=== PATIENT | female | born 1990 | race Caucasian/White ===

== ENCOUNTER 2018-07-23 15:19 | Emergency (ER) | payer OTHER ==
[~2018-07-23 15:19] MED LIST: ADDERALL; ALBU90OI INH; AMOCLA500 PO; AMOX500 PO; ATOM40; AZIT250 PO; BCPs; BENZ100A PO; Bactrim Ds Tab1 EACH PO; CEPH500 PO; CIPR500 PO; CODGUAEL PO; CRUTCH3 USE; CYCL10 PO; Cleocin HCl300 MG PO; FLUO20; HYDACE5 PO; HYDACE5325 PO; IBUP400 PO; IBUP600 PO; IBUP800 PO; Loperamide2 MG PO; MELA3; NAPR500 PO; NO ROUTINE MEDS; OXYACE5T PO; PERM5TC TOP; PHENA200 PO; PRED10 PO; PROC10 PO; PROCODE120 PO; PROM25 PO; RXOXYACE PO; Roxicodone5 MG PO; SERT25; SULTRIDS PO; TOBDEXOPO OP; TOBR.3OPSO OP; TRAM50 PO; TRIA80TC TOP; Ultram50 MG PO; Zithromax250 MG PO
== END 2018-07-23 15:57 | disposition left against medical advice (07) ==
LOC: ER 15:19
DX: Z53.21 Procedure and treatment not carried out due to patient leaving prior to being seen by health care provider (principal); O26.859 Spotting complicating pregnancy, unspecified trimester

== ENCOUNTER 2018-07-26 05:12 | Emergency (ER) | payer OTHER ==
[~2018-07-26] VITALS: Ht 160 cm; Wt 79.4 kg
[2018-07-26 06:44] LABS: BASOPHILS ABSOLUTE AUTO 0.02 K/mm3 (0.00-0.23); BASOPHILS PERCENT AUTO 0 % (0-2); EOSINOPHILS ABSOLUTE AUTO 0.09 K/mm3 (0.00-0.68); EOSINOPHILS PERCENT AUTO 1 % (0-6); Hematocrit 35.8 % (33.0-51.0); Hemoglobin 11.8 g/dL (11.5-16.0); IMMATURE GRAN ABSOLUTE AUTO 0.01 K/mm3 (0.00-0.10); IMMATURE GRAN PERCENT AUTO 0 % (0-1); LYMPHOCYTES ABSOLUTE AUTO 1.91 K/mm3 (0.84-5.20); LYMPHOCYTES PERCENT AUTO 24 % (21-46); MONOCYTES ABSOLUTE AUTO 0.68 K/mm3 (0.16-1.47); MONOCYTES PERCENT AUTO 9 % (4-13); Mean Corpuscular HGB 29.6 pg (26.0-34.0); Mean Corpuscular Volume 90 fL (80-100); Mean Platelet Volume 9.4 fL (9.1-12.4); NEUTROPHILS ABSOLUTE AUTO 5.15 K/mm3 (1.96-9.15); NEUTROPHILS PERCENT AUTO 66 % (41-73); Platelet Count 335 K/mm3 (150-400); RDW Coefficient Variation 12.5 % (11.7-14.2); RDW Standard Deviation 41.2 fL (35.1-46.3); Red Blood Cell Count 3.99 M/mm3 (3.80-5.20); White Blood Cell Count 7.86 K/mm3 (4.00-11.30)
[2018-07-26 07:09] LABS: Anion Gap 8 mmol/L (6-16); Beta HCG, Quantitative, Serum 967 mIU/mL (0-3); Blood Urea Nitrogen 20 mg/dL (8-24); Bun/Creatinine Ratio 25.4 (12.0-20.0); CO2, Blood 26 mmol/L (21-32); Calcium, Blood 8.1 mg/dL (8.5-10.1); Chloride, Blood 108 mmol/L (98-108); Creatinine, Blood 0.79 mg/dL (0.40-1.00); Glomerular Filtration Rate >60 (60-); Glucose, Blood 80 mg/dL (70-99); Potassium, Blood 3.4 mmol/L (3.5-5.5); Sodium, Blood 142 mmol/L (136-145)
== END 2018-07-26 08:36 | disposition home or self-care (01) ==
LOC: ER 05:12
PROVIDERS: Emergency Medicine
DX: O03.9 Complete or unspecified spontaneous abortion without complication (principal); Z88.5 Allergy status to narcotic agent; Z88.7 Allergy status to serum and vaccine; Z79.899 Other long term (current) drug therapy; F17.210 Nicotine dependence, cigarettes, uncomplicated
CPT/HCPCS: 76801; 80048; 84702; 84703; 85025; 86900; 86901; 99284-25

== ENCOUNTER 2020-02-28 21:27 | Emergency (ER) | payer SELFPAY ==
[~2020-02-28] VITALS: Ht 160 cm; Wt 77.1 kg
[2020-02-29] MEDS ORDERED: Keflex500 MG PO (18:50)
[2020-02-29] MEDS ORDERED: Bactrim Ds Tab1 EACH PO (18:50)
== END 2020-02-29 01:08 | disposition left against medical advice (07) ==
LOC: ER 21:27
DX: R21 Rash and other nonspecific skin eruption (principal); Z53.21 Procedure and treatment not carried out due to patient leaving prior to being seen by health care provider
CPT/HCPCS: 99282

== ENCOUNTER 2020-02-29 17:08 | Emergency (ER) | payer SELFPAY ==
[~2020-02-29] VITALS: Ht 160 cm; Wt 81.7 kg
[2020-02-29] MEDS ORDERED: Keflex500 MG PO (18:50)
[2020-02-29] MEDS ORDERED: Bactrim Ds Tab1 EACH PO (18:50)
== END 2020-02-29 19:07 | disposition home or self-care (01) ==
LOC: ER 17:08
DX: L03.115 Cellulitis of right lower limb (principal); L03.116 Cellulitis of left lower limb; L97.929 Non-pressure chronic ulcer of unspecified part of left lower leg with unspecified severity; L97.919 Non-pressure chronic ulcer of unspecified part of right lower leg with unspecified severity; Z88.5 Allergy status to narcotic agent; F17.210 Nicotine dependence, cigarettes, uncomplicated
CPT/HCPCS: 99282; A9270-GY

== ENCOUNTER 2020-04-20 18:20 | Emergency (ER) | payer SELFPAY ==
[~2020-04-20] VITALS: Ht 160 cm; Wt 84.8 kg
[~2020-04-20 18:20] MED LIST changes: +Keflex500 MG PO
== END 2020-04-20 19:11 | disposition home or self-care (01) ==
LOC: ER 18:20
DX: J06.9 Acute upper respiratory infection, unspecified (principal); F17.210 Nicotine dependence, cigarettes, uncomplicated; Z88.5 Allergy status to narcotic agent; Z88.7 Allergy status to serum and vaccine
CPT/HCPCS: 99283

== ENCOUNTER 2020-04-23 17:49 | Emergency (ER) | payer SELFPAY ==
[~2020-04-23] VITALS: Ht 160 cm; Wt 84.8 kg
== END 2020-04-23 19:42 | disposition left against medical advice (07) ==
LOC: ER 17:49
DX: S81.801A Unspecified open wound, right lower leg, initial encounter (principal); S81.802A Unspecified open wound, left lower leg, initial encounter; X58.XXXA Exposure to other specified factors, initial encounter; Z53.21 Procedure and treatment not carried out due to patient leaving prior to being seen by health care provider
CPT/HCPCS: 99282

== ENCOUNTER 2020-05-05 00:57 | Emergency (ER) | payer OTHER ==
[~2020-05-05] VITALS: Ht 160 cm; Wt 81.7 kg
[2020-05-05] MEDS ORDERED: METPRE4DP PO (01:45)
[2020-05-05] MEDS ORDERED: MUPIROCIN15 GM TOP (01:45)
== END 2020-05-05 01:53 | disposition home or self-care (01) ==
LOC: ER 00:57
DX: L25.9 Unspecified contact dermatitis, unspecified cause (principal); L97.829 Non-pressure chronic ulcer of other part of left lower leg with unspecified severity; L97.819 Non-pressure chronic ulcer of other part of right lower leg with unspecified severity; F17.210 Nicotine dependence, cigarettes, uncomplicated; Z88.5 Allergy status to narcotic agent
CPT/HCPCS: 82947; 96372; 99283; J3301

== ENCOUNTER → 2020-06-10 | Outpatient (CLI) | payer OTHER ==
[~2020-06-10] MED LIST changes: +METPRE4DP PO; +MUPIROCIN15 GM TOP
== END | disposition home or self-care (01) ==
LOC: LAB 17:55
DX: L97.919 Non-pressure chronic ulcer of unspecified part of right lower leg with unspecified severity (principal); L08.9 Local infection of the skin and subcutaneous tissue, unspecified
CPT/HCPCS: 87070; 87075; 87077; 87147; 87186; 87205

== ENCOUNTER → 2021-01-25 | Outpatient (CLI) | payer OTHER | END | disposition home or self-care (01) | LOC: LAB 14:55 → LAB SHORT 14:55 | DX: N39.0 Urinary tract infection, site not specified (principal); A49.9 Bacterial infection, unspecified; R35.0 Frequency of micturition | CPT/HCPCS: 87077; 87086; 87186 ==

== ENCOUNTER 2021-08-31 11:44 | Emergency (ER) | payer OTHER ==
[~2021-08-31] VITALS: Ht 160 cm; Wt 81.7 kg
[2021-08-31 13:09] LABS: BASOPHILS ABSOLUTE AUTO 0.03 K/mm3 (0.00-0.23); BASOPHILS PERCENT AUTO 1 % (0-2); EOSINOPHILS ABSOLUTE AUTO 0.05 K/mm3 (0.00-0.68); EOSINOPHILS PERCENT AUTO 1 % (0-6); Hematocrit 40.2 % (33.0-51.0); Hemoglobin 13.2 g/dL (11.5-16.0); IMMATURE GRAN ABSOLUTE AUTO 0.01 K/mm3 (0.00-0.10); IMMATURE GRAN PERCENT AUTO 0 % (0-1); LYMPHOCYTES PERCENT AUTO 23 % (21-46); MONOCYTES PERCENT AUTO 9 % (4-13); Mean Corpuscular HGB 28.8 pg (26.0-34.0); Mean Corpuscular HGB Conc 32.8 g/dL (31.5-36.5); Mean Corpuscular Volume 88 fL (80-100); Mean Platelet Volume 9.4 fL (9.1-12.4); NEUTROPHILS ABSOLUTE AUTO 4.35 K/mm3 (1.96-9.15); NEUTROPHILS PERCENT AUTO 66 % (41-73); Platelet Count 365 K/mm3 (150-400); RDW Coefficient Variation 13.2 % (11.7-14.2); RDW Standard Deviation 41.9 fL (35.1-46.3); Red Blood Cell Count 4.59 M/mm3 (3.80-5.20); White Blood Cell Count 6.54 K/mm3 (4.00-11.30)
[2021-08-31 13:33] LABS: Anion Gap 7 mmol/L (6-16); Beta HCG, Quantitative, Serum 403 mIU/mL (0-3); Blood Urea Nitrogen 14 mg/dL (8-24); Bun/Creatinine Ratio 23.4 (12.0-20.0); CO2, Blood 23 mmol/L (21-32); Calcium, Blood 8.8 mg/dL (8.5-10.1); Chloride, Blood 109 mmol/L (98-108); Glomerular Filtration Rate >60 (60-); Glucose, Blood 95 mg/dL (70-99); Potassium, Blood 3.6 mmol/L (3.5-5.5); Sodium, Blood 139 mmol/L (136-145)
[2021-08-31 14:22] LABS: Albumin, Blood 3.5 g/dL (3.4-5.0); Bilirubin, Direct 0.2 mg/dL (0.0-0.3); Bilirubin, Indirect 0.6 mg/dL (0.1-0.7); Bilirubin, Total 0.8 mg/dL (0.1-1.0); Globulin, Blood 3.4 g/dL (2.2-4.0); Total Protein, Blood 6.9 g/dL (6.4-8.2)
== END 2021-08-31 16:17 | disposition home or self-care (01) ==
LOC: ER 11:44
PROVIDERS: Physician Assistant
DX: O00.90 Unspecified ectopic pregnancy without intrauterine pregnancy (principal); Z88.5 Allergy status to narcotic agent; Z88.8 Allergy status to other drugs, medicaments and biological substances
CPT/HCPCS: 36415; 80048; 80076; 84702; 85025; 96372; 99284-25; J9260

== ENCOUNTER 2021-11-06 19:11 | Emergency (ER) | payer OTHER ==
[~2021-11-06] VITALS: Ht 160 cm; Wt 99.8 kg
== END 2021-11-06 21:30 | disposition left against medical advice (07) ==
LOC: ER 19:11
DX: S61.412A Laceration without foreign body of left hand, initial encounter (principal); F17.210 Nicotine dependence, cigarettes, uncomplicated; Z23 Encounter for immunization; Z88.5 Allergy status to narcotic agent; Z88.7 Allergy status to serum and vaccine; V19.9XXA Pedal cyclist (driver) (passenger) injured in unspecified traffic accident, initial encounter; Y92.9 Unspecified place or not applicable
CPT/HCPCS: 73090; 73130; 90714; A9270

== ENCOUNTER 2022-10-17 20:21 | Inpatient (IN) | payer OTHER ==
[~2022-10-17] VITALS: Ht 160 cm; Wt 108.0 kg
[~2022-10-17 20:21] MED LIST changes: +Prednisone20 MG PO
[2022-10-18 00:24] LABS: Albumin, Blood 3.4 g/dL (3.4-5.0); Albumin/Globulin Ratio 0.8 (0.8-1.8); Bilirubin, Total 1.2 mg/dL (0.1-1.0); Bun/Creatinine Ratio 25.4 (12.0-20.0); Creatinine, Blood 0.67 mg/dL (0.40-1.00); Globulin, Blood 4.2 g/dL (2.2-4.0); Total Protein, Blood 7.6 g/dL (6.4-8.2)
[2022-10-18 03:12] LABS: BASOPHILS ABSOLUTE AUTO 0.04 K/mm3 (0.00-0.23); BASOPHILS PERCENT AUTO 0 % (0-2); EOSINOPHILS ABSOLUTE AUTO 0.08 K/mm3 (0.00-0.68); EOSINOPHILS PERCENT AUTO 1 % (0-6); Hematocrit 35.1 % (33.0-51.0); Hemoglobin 12.3 g/dL (11.5-16.0); IMMATURE GRAN ABSOLUTE AUTO 0.05 K/mm3 (0.00-0.10); IMMATURE GRAN PERCENT AUTO 0 % (0-1); LYMPHOCYTES ABSOLUTE AUTO 1.84 K/mm3 (0.84-5.20); LYMPHOCYTES PERCENT AUTO 14 % (21-46); MONOCYTES ABSOLUTE AUTO 1.06 K/mm3 (0.16-1.47); MONOCYTES PERCENT AUTO 8 % (4-13); Mean Corpuscular HGB 29.5 pg (26.0-34.0); Mean Corpuscular Volume 84 fL (80-100); Mean Platelet Volume 9.2 fL (9.1-12.4); NEUTROPHILS ABSOLUTE AUTO 10.16 K/mm3 (1.96-9.15); NEUTROPHILS PERCENT AUTO 77 % (41-73); Platelet Count 546 K/mm3 (150-400); RDW Coefficient Variation 11.7 % (11.7-14.2); RDW Standard Deviation 35.9 fL (35.1-46.3); Red Blood Cell Count 4.17 M/mm3 (3.80-5.20); White Blood Cell Count 13.23 K/mm3 (4.00-11.30)
[2022-10-18 03:29] LABS: Albumin, Blood 3.1 g/dL (3.4-5.0); Albumin/Globulin Ratio 0.7 (0.8-1.8); Bilirubin, Total 1.2 mg/dL (0.1-1.0); Bun/Creatinine Ratio 27.5 (12.0-20.0); Calcium, Blood 8.6 mg/dL (8.5-10.1); Creatinine, Blood 0.65 mg/dL (0.40-1.00); Globulin, Blood 4.2 g/dL (2.2-4.0); Magnesium, Blood 1.9 mg/dL (1.6-2.4); Potassium, Blood 3.1 mmol/L (3.5-5.5); Total Protein, Blood 7.3 g/dL (6.4-8.2)
[2022-10-18 04:34] VITALS: BP 115/76
--- NOTE | 2022-10-18 04:57 | NUR ---
0427 PT ARRIVED TO ROOM FROM ER VIA [facility] IN STABLE CONDITION. PT HAS INCISIONS X 4 ON ABD, SMALL, SURGICAL ADHESIVE AND STERI STRIPS WERE USED TO CLOSE THEM. THEY HAVE SCANT DRIED BLOOD AND SCANT SCABBING, NO REDNESS OR SWELLING. CLEANED WITH WOUND CLEANSER AND APPLIED CLEAN BANDAIDS. PT HAD A TEMP OF 99.9, WILL GIVE TYLENOL AND EVAL FOR EFFECT. OUTLINED REDNESS IN LE'S WITH MARKER. CL TO R IJ, INFUSIING, SITE IS WNL. PT DENIES ANY OTHER DISCOMFORTS AT THIS TIME. PT DENIES NEED FOR ANYTHIG ELSE AT THIS TIME. NO APPARENT SIGNS OF DISTRESS. CALL LIGHT IS IN REACH.
--- NOTE | 2022-10-18 05:47 | NUR ---
PT LYING IN BED, WAKES EASILY TO VERBAL STIMULI. NO APPARENT SIGNS OF DISTRESS. CALL LIGHT IS IN REACH. NO OTHER CHANGES THIS SHIFT.
[2022-10-18 07:51] VITALS: BP 117/63
[2022-10-18 15:15] VITALS: BP 107/73
--- NOTE | 2022-10-18 18:39 | NUR ---
ALERT AND ORIENTED, IMPROVED AMBULATION, IV VANCO INFUSING, PATIENT WANTING TO LEAVE TO SMOKE AND REPORTED DR MCGOVERN HER AFTER THE ANTIBIOTICS WERE DONE SHE WOULD GO HOME, PATIENT EDUCATED ON AMA POLICY, PROS AND CONS, INFECTION PROCESS. OFFERED NICOTINE GUM AND PATCH, PATIENT REFUSED BOTH. REPORTED TO HIGH MAN FOR PM SHIFT. PATIENT COOPERATIVE TO CARE. MEDICATED FOR PAIN WITH TYLENOL. WBC 13.23, MAKES NEEDS KNOWN, WILL RELAY TO PM RN
[2022-10-18 19:53] VITALS: BP 122/60
[2022-10-19 03:32] LABS: Vancomycin, Trough 16.7 ug/mL (5.0-10.0)
[2022-10-19 05:07] VITALS: BP 130/74
[2022-10-19 05:38] LABS: BASOPHILS ABSOLUTE AUTO 0.03 K/mm3 (0.00-0.23); BASOPHILS PERCENT AUTO 1 % (0-2); EOSINOPHILS ABSOLUTE AUTO 0.23 K/mm3 (0.00-0.68); EOSINOPHILS PERCENT AUTO 4 % (0-6); Hematocrit 34.4 % (33.0-51.0); Hemoglobin 11.5 g/dL (11.5-16.0); IMMATURE GRAN ABSOLUTE AUTO 0.01 K/mm3 (0.00-0.10); IMMATURE GRAN PERCENT AUTO 0 % (0-1); LYMPHOCYTES PERCENT AUTO 33 % (21-46); MONOCYTES ABSOLUTE AUTO 0.66 K/mm3 (0.16-1.47); MONOCYTES PERCENT AUTO 11 % (4-13); Mean Corpuscular HGB 29.6 pg (26.0-34.0); Mean Corpuscular HGB Conc 33.4 g/dL (31.5-36.5); Mean Corpuscular Volume 88 fL (80-100); Mean Platelet Volume 9.7 fL (9.1-12.4); NEUTROPHILS ABSOLUTE AUTO 3.18 K/mm3 (1.96-9.15); NEUTROPHILS PERCENT AUTO 52 % (41-73); Platelet Count 474 K/mm3 (150-400); RDW Standard Deviation 38.7 fL (35.1-46.3); Red Blood Cell Count 3.89 M/mm3 (3.80-5.20); White Blood Cell Count 6.11 K/mm3 (4.00-11.30)
--- NOTE | 2022-10-19 05:48 | NUR ---
Summary: No acute events overnight. Patient aox4. VSS. Patient took a shower before bed. CHG babth given. IV abx infused. Plan for DC today if blood cultures come back negative.
[2022-10-19 06:05] LABS: Bun/Creatinine Ratio 23.9 (12.0-20.0); Calcium, Blood 8.2 mg/dL (8.5-10.1); Creatinine, Blood 0.59 mg/dL (0.40-1.00); Potassium, Blood 3.4 mmol/L (3.5-5.5)
[2022-10-19 07:53] VITALS: BP 112/61
[2022-10-19] MEDS ORDERED: LACT PO (12:12)
[2022-10-19] MEDS ORDERED: BACTRIM 400-801 EACH PO (12:13)
[2022-10-19] MEDS ORDERED: NYSTATIN15 GM TOP (12:13)
[2022-10-19] MEDS ORDERED: BACTRIM DS TAB1 EAC6 PO (13:30)
--- NOTE | 2022-10-19 14:47 | NUR ---
1423 DISCHARGED HOME, PATIENT STATED UNDERSTANDING OF DISCHARGE INSTRUCTIONS AND FOLLOW UP NEEDS, DENIED FURTHER QUESTIONS
== END 2022-10-19 15:07 | disposition home or self-care (01) | DRG 872 ==
LOC: ER 20:21 → MEDS 20:22
PROVIDERS: Emergency Medicine; Family Medicine; ADMIT Student in an Organized Health Care Education/Training Program
PROC: 3E03329 Introduction of Other Anti-infective into Peripheral Vein, Percutaneous Approach (ICD-10-PCS; principal; 2022-10-17)
PROC: 02HV33Z Insertion of Infusion Device into Superior Vena Cava, Percutaneous Approach (ICD-10-PCS; 2022-10-17)
DX: A41.9 Sepsis, unspecified organism (principal); L03.116 Cellulitis of left lower limb; L03.115 Cellulitis of right lower limb; Z66 Do not resuscitate; F17.210 Nicotine dependence, cigarettes, uncomplicated; E87.6 Hypokalemia; F15.10 Other stimulant abuse, uncomplicated; D75.838 Other thrombocytosis; Z71.6 Tobacco abuse counseling; Z71.51 Drug abuse counseling and surveillance of drug abuser; Z86.14 Personal history of Methicillin resistant Staphylococcus aureus infection; Z88.6 Allergy status to analgesic agent; Z88.7 Allergy status to serum and vaccine; Z86.19 Personal history of other infectious and parasitic diseases; Z90.49 Acquired absence of other specified parts of digestive tract; Z98.890 Other specified postprocedural states; Z79.52 Long term (current) use of systemic steroids
CPT/HCPCS: 36415; 36556; 71045; 80048; 80053; 80202; 83605; 83735; 84132; 85025; 87040; 93971; 99285-25; A9270; C1751; J1650; J3370; J7050

== ENCOUNTER 2022-10-23 07:52 | Emergency (ER) | payer OTHER ==
[~2022-10-23] VITALS: Ht 160 cm; Wt 90.7 kg
[~2022-10-23 07:52] MED LIST changes: +BACTRIM 400-801 EACH PO; +BACTRIM DS TAB1 EAC6 PO; +LACT PO; +NYSTATIN15 GM TOP
[2022-10-23 08:16] VITALS: BP 132/77
[2022-10-23] MEDS ORDERED: ALEVAZOL56.7 G1 TOP (08:47)
[2022-10-23] MEDS ORDERED: CEPH500 PO (08:47)
[2022-10-23] MEDS ORDERED: Cleocin HCl150 MG PO (08:47)
== END 2022-10-23 09:02 | disposition home or self-care (01) ==
LOC: ER 07:52
DX: L03.116 Cellulitis of left lower limb (principal); L03.115 Cellulitis of right lower limb; F15.90 Other stimulant use, unspecified, uncomplicated; L30.4 Erythema intertrigo; Z88.5 Allergy status to narcotic agent; Z88.7 Allergy status to serum and vaccine; Z79.899 Other long term (current) drug therapy; F17.210 Nicotine dependence, cigarettes, uncomplicated
CPT/HCPCS: 99283; A9270

== ENCOUNTER 2022-10-27 11:32 | Emergency (ER) | payer OTHER ==
[~2022-10-27] VITALS: Ht 160 cm; Wt 86.2 kg
[~2022-10-27 11:32] MED LIST changes: +ALEVAZOL56.7 G1 TOP; +Cleocin HCl150 MG PO
[2022-10-27] MEDS ORDERED: DOXY100 PO (15:20)
[2022-10-27] MEDS ORDERED: CEPH500 PO (15:20)
[2022-10-27 15:59] VITALS: BP 132/80
== END 2022-10-27 16:00 | disposition home or self-care (01) ==
LOC: ER 11:32
DX: L03.116 Cellulitis of left lower limb (principal); L03.115 Cellulitis of right lower limb; B95.62 Methicillin resistant Staphylococcus aureus infection as the cause of diseases classified elsewhere; Z88.5 Allergy status to narcotic agent; Z88.7 Allergy status to serum and vaccine; Z79.899 Other long term (current) drug therapy; F17.210 Nicotine dependence, cigarettes, uncomplicated
CPT/HCPCS: 96372; 99283-25; A9270; J1885

== ENCOUNTER 2024-06-22 23:43 | Emergency (ER) | payer OTHER ==
[~2024-06-22] VITALS: Ht 170.2 cm; Wt 74.8 kg
[~2024-06-22 23:43] MED LIST changes: +AMOCLA875 PO; +DOXY100 PO; +Zofran4 MG PO
[2024-06-22 23:54] VITALS: BP 165/93
== END 2024-06-23 03:06 | disposition left against medical advice (07) ==
LOC: ER 23:43
DX: R51.9 Headache, unspecified (principal); Z53.29 Procedure and treatment not carried out because of patient's decision for other reasons
CPT/HCPCS: 70450; 99282-25

== ENCOUNTER 2025-04-28 19:27 | Emergency (ER) | payer OTHER ==
[~2025-04-28] VITALS: Ht 160 cm; Wt 99.8 kg
[2025-04-28 21:03] LABS: Source, Urine Clean Catch
[2025-04-28 21:07] LABS: Bilirubin, Urine Neg (Neg); Color, Urine Amber (P-Yellow); Glucose Qualitative, Urine Neg (Neg); Ketones, Urine 1+ (Neg); Leukocyte Esterase, Urine 3+ (Neg); Protein, Urine 3+ (Neg); Specific Gravity, Urine 1.025 (1.003-1.022); Urobilinogen, Urine NORM (Normal)
[2025-04-28 21:18] LABS: White Blood Cells, Urine 50-100 /hpf (0-5)
[2025-04-28 21:30] VITALS: BP 121/87
[2025-04-28 21:37] LABS: BASOPHILS ABSOLUTE AUTO 0.04 K/mm3 (0.00-0.23); BASOPHILS PERCENT AUTO 1 % (0-2); EOSINOPHILS ABSOLUTE AUTO 0.11 K/mm3 (0.00-0.68); EOSINOPHILS PERCENT AUTO 1 % (0-6); Hematocrit 39.8 % (33.0-51.0); Hemoglobin 13.3 g/dL (11.5-16.0); IMMATURE GRAN ABSOLUTE AUTO 0.03 K/mm3 (0.00-0.10); IMMATURE GRAN PERCENT AUTO 0 % (0-1); LYMPHOCYTES ABSOLUTE AUTO 2.33 K/mm3 (0.84-5.20); LYMPHOCYTES PERCENT AUTO 27 % (21-46); MONOCYTES ABSOLUTE AUTO 0.65 K/mm3 (0.16-1.47); MONOCYTES PERCENT AUTO 7 % (4-13); Mean Corpuscular HGB Conc 33.4 g/dL (31.5-36.5); Mean Corpuscular Volume 87 fL (80-100); NEUTROPHILS ABSOLUTE AUTO 5.64 K/mm3 (1.96-9.15); NEUTROPHILS PERCENT AUTO 64 % (41-73); NRBC ABSOLUTE 0.00 K/mm3 (0.00-0.02); NRBC Auto 0.0 /100 WBC (0.0-0.2); Platelet Count 382 K/mm3 (150-400); RDW Coefficient Variation 12.2 % (11.7-14.2); RDW Standard Deviation 39.0 fL (35.1-46.3)
[2025-04-28] MEDS ORDERED: CefTRIAXone Sodium 1,000 MG in NS 100 ML IV ONE (22:05)
[2025-04-28 22:22] LABS: Alanine Aminotransfer (ALT/SGP 63 U/L (12-78); Albumin, Blood 3.4 g/dL (3.4-5.0); Albumin/Globulin Ratio 0.9 (0.8-1.8); Anion Gap 7 mmol/L (3-11); Aspartate Aminotrans (AST/SGOT 54 U/L (12-37); Beta HCG, Quantitative, Serum <1 mIU/mL (0-3); Bilirubin, Total 0.3 mg/dL (0.1-1.0); Blood Urea Nitrogen 14 mg/dL (8-24); CO2, Blood 26 mmol/L (21-32); Calcium, Blood 8.7 mg/dL (8.5-10.1); Chloride, Blood 108 mmol/L (98-108); Creatinine, Blood 0.68 mg/dL (0.40-1.00); Globulin, Blood 3.6 g/dL (2.2-4.0); Glucose, Blood 84 mg/dL (70-99); Potassium, Blood 3.8 mmol/L (3.5-5.5); Sodium, Blood 137 mmol/L (136-145); Total Protein, Blood 7.0 g/dL (6.4-8.2)
[2025-04-28] MEDS ORDERED: CEFP200 PO (22:39)
[2025-04-28] MEDS ORDERED: Ondansetron4 MG/2 M2 IV (22:39)
== END 2025-04-28 23:11 | disposition home or self-care (01) ==
LOC: ER 19:27
PROVIDERS: Student in an Organized Health Care Education/Training Program
DX: N39.0 Urinary tract infection, site not specified (principal); N93.9 Abnormal uterine and vaginal bleeding, unspecified; R74.01 Elevation of levels of liver transaminase levels; F17.210 Nicotine dependence, cigarettes, uncomplicated; Z88.5 Allergy status to narcotic agent; Z88.7 Allergy status to serum and vaccine
CPT/HCPCS: 74177; 80053; 81001; 83690; 84702; 85025; 86850; 86900; 86901; 87077; 87086; 87186; 93005; 93010; 96365-59; 96374-59; 99284-25; J0696; Q9967